=== PATIENT | female | born 1975 | race African-American/Black ===

== ENCOUNTER 2016-08-11 09:53 | Emergency (ER) | payer MEDICAID ==
[~2016-08-11] VITALS: Ht 172.7 cm; Wt 113.9 kg
[2016-08-11 10:26] VITALS: BP 126/87
[2016-08-11] MEDS ORDERED: IBUPROFEN 600 MG TAB PO ONE (10:45)
== END 2016-08-11 11:19 | disposition home or self-care (01) ==
LOC: ER 09:53
DX: S93.402A Sprain of unspecified ligament of left ankle, initial encounter (principal); W01.0XXA Fall on same level from slipping, tripping and stumbling without subsequent striking against object, initial encounter; Y93.89 Activity, other specified; Y99.8 Other external cause status; Y92.091 Bathroom in other non-institutional residence as the place of occurrence of the external cause
CPT/HCPCS: 73610

== ENCOUNTER 2017-01-03 09:18 | Emergency (ER) | payer MEDICAID ==
[~2017-01-03] VITALS: Ht 172.7 cm; Wt 108.9 kg
[2017-01-03 09:31] VITALS: BP 145/89
== END 2017-01-03 10:19 | disposition home or self-care (01) ==
LOC: ER 09:20
DX: S39.012A Strain of muscle, fascia and tendon of lower back, initial encounter (principal); X50.0XXA Overexertion from strenuous movement or load, initial encounter; Y93.89 Activity, other specified; Y99.8 Other external cause status; Y92.89 Other specified places as the place of occurrence of the external cause

== ENCOUNTER 2017-02-12 09:03 | Emergency (ER) | payer MEDICAID ==
[~2017-02-12] VITALS: Ht 172.7 cm; Wt 115.7 kg
[2017-02-12 12:30] VITALS: BP 144/85
== END 2017-02-12 10:43 | disposition home or self-care (01) ==
LOC: ER 09:03
DX: G56.02 Carpal tunnel syndrome, left upper limb (principal)
CPT/HCPCS: 29125

== ENCOUNTER 2017-06-25 09:03 | Emergency (ER) | payer MEDICAID ==
[~2017-06-25] VITALS: Ht 172.7 cm; Wt 114.3 kg
[2017-06-25 09:11] VITALS: BP 135/87
== END 2017-06-25 11:36 | disposition left against medical advice (07) ==
LOC: ER 09:03
DX: R05 Cough (principal); J02.9 Acute pharyngitis, unspecified; Z53.21 Procedure and treatment not carried out due to patient leaving prior to being seen by health care provider

== ENCOUNTER 2017-08-28 13:46 | Emergency (ER) | payer MEDICAID ==
[~2017-08-28] VITALS: Ht 172.7 cm; Wt 108.9 kg
[2017-08-28 13:57] VITALS: BP 144/93
[2017-08-28] MEDS ORDERED: methylPREDNISolone SOD SUCC 125 MG/2 ML VL IM ONE (14:30)
[2017-08-28] MEDS ORDERED: IPRATROPIUM BROM 0.5 MG/2.5ML INH SOL NEB ONE (14:30)
[2017-08-28] MEDS ORDERED: ALBUTEROL SULF 2.5 MG/0.5ML(0.5%) NEB SOLN NEB ONE ×2 (14:30→15:00)
== END 2017-08-28 15:09 | disposition home or self-care (01) ==
LOC: ER 13:46
DX: J45.901 Unspecified asthma with (acute) exacerbation (principal); T63.441A Toxic effect of venom of bees, accidental (unintentional), initial encounter; Y92.89 Other specified places as the place of occurrence of the external cause
CPT/HCPCS: 94640; 96372; 99283; J2930

== ENCOUNTER 2018-03-24 11:05 | Emergency (ER) | payer MEDICAID ==
[~2018-03-24] VITALS: Ht 172.7 cm; Wt 99.8 kg
[2018-03-24 11:09] VITALS: BP 143/92
== END 2018-03-24 12:09 | disposition left against medical advice (07) ==
LOC: ER 11:05
DX: J45.909 Unspecified asthma, uncomplicated (principal); Z53.21 Procedure and treatment not carried out due to patient leaving prior to being seen by health care provider

== ENCOUNTER 2019-01-04 07:16 | Emergency (ER) | payer SELFPAY ==
[~2019-01-04] VITALS: Ht 172.7 cm; Wt 118.4 kg
[2019-01-04 08:07] LABS: Urine Bacteria NONE SEEN /hpf (None Seen); Urine Blood Negative /uL (Negative); Urine Mucus FEW (None Seen); Urine Specific Gravity 1.023 (1.001-1.035); Urine WBC 2 /hpf (0 - 5)
[2019-01-04 08:52] VITALS: BP 152/95
[2019-01-04] MEDS ORDERED: IBUPROFEN 800 MG TAB PO ONE (09:15)
== END 2019-01-04 09:48 | disposition home or self-care (01) ==
LOC: ER 07:16
DX: G89.29 Other chronic pain (principal); M25.551 Pain in right hip; N39.0 Urinary tract infection, site not specified; M54.5 Low back pain; J45.909 Unspecified asthma, uncomplicated; Z98.51 Tubal ligation status
CPT/HCPCS: 72100; 73502; 81001; 81025

== ENCOUNTER → 2020-05-10 07:30 | Emergency (ER) | payer MEDICAID ==
[~2020-05-10] VITALS: Ht 172.7 cm; Wt 111.6 kg
[~2020-05-10 07:30] MED LIST: MORPHINE SULF INJ 2 MG/ML SYRINGE 1ML IV ONE; ONDANSETRON HCL 4 MG/2 ML VIAL ONE
[2020-05-10 08:05] LABS: Basophils # (auto) 0 10 ^3/uL (0-0.2); Basophils % (auto) 0.2 % (0.0-2.0); Eosinophils # (auto) 0.1 10 ^3/uL (0-0.8); Eosinophils % (auto) 1.3 % (0.0-7.0); Hemoglobin 12.4 g/dL (12.2-16.2); Lymphocytes # (auto) 0.7 10 ^3/uL (0.4-5.4); Lymphocytes % (auto) 10.7 % (10.0-50.0); Mean Corpuscular Hgb Conc. 35.4 g/dL (32.0-36.0); Mean Corpuscular Volume 87.7 fL (80.0-100.0); Monocytes # (auto) 0.3 10 ^3/uL (0-1.3); Monocytes % (auto) 4.6 % (0.0-12.0); Neutrophils # (auto) 5.3 10 ^3/uL (1.6-8.6); Neutrophils % (auto) 83.2 % (37.0-80.0); Nucleated Red Blood Cells % 0.1 %; Platelet Count (auto) 261 10^3/uL (140-450); Red Blood Cells 3.99 10^6/uL (4.0-5.20); Red Cell Distribution Width 14.4 % (11.8-14.3); White Blood Cell 6.4 10^3/uL (4.4-10.8)
[2020-05-10 08:26] LABS: BUN/Creatinine Ratio 19.4
[2020-05-10 08:31] LABS: Bilirubin, Total 0.6 mg/dL (0.2-1.0); Total Protein 8.3 g/dL (6.4-8.2)
[2020-05-10 08:32] LABS: Urine Bacteria NONE SEEN /hpf (None Seen); Urine Blood Negative /uL (Negative); Urine Mucus FEW (None Seen); Urine Specific Gravity 1.025 (1.001-1.035); Urine WBC 1 /hpf (0 - 5)
[2020-05-10 08:48] LABS: Amylase 49 U/L (25-115); Lipase 204 U/L (73-393)
[2020-05-10 09:41] VITALS: BP 136/77
== END | disposition home or self-care (01) ==
LOC: ER 07:30
DX: K80.20 Calculus of gallbladder without cholecystitis without obstruction (principal); J45.909 Unspecified asthma, uncomplicated; Z98.51 Tubal ligation status
CPT/HCPCS: 36415; 74176; 80053; 81001; 82150; 83690; 85025; 96374; 96375; 99284; J2270; J2405

== ENCOUNTER 2020-11-14 08:19 | Emergency (ER) | payer MEDICAID ==
[~2020-11-14] VITALS: Ht 172.7 cm; Wt 108.9 kg
[2020-11-14 08:19] VITALS: BP 138/81
[2020-11-14 08:54] LABS: Basophils # (auto) 0 10 ^3/uL (0-0.2); Basophils % (auto) 0.7 % (0.0-2.0); Eosinophils # (auto) 0.2 10 ^3/uL (0-0.8); Eosinophils % (auto) 2.8 % (0.0-7.0); Hematocrit 33.7 % (36.0-46.0); Hemoglobin 11.6 g/dL (12.2-16.2); Lymphocytes # (auto) 2.3 10 ^3/uL (0.4-5.4); Lymphocytes % (auto) 35.7 % (10.0-50.0); Mean Corpuscular Hemoglobin 29.6 pg (28.0-32.0); Mean Corpuscular Hgb Conc. 34.5 g/dL (32.0-36.0); Mean Corpuscular Volume 85.7 fL (80.0-100.0); Monocytes # (auto) 0.5 10 ^3/uL (0-1.3); Monocytes % (auto) 8.1 % (0.0-12.0); Neutrophils # (auto) 3.4 10 ^3/uL (1.6-8.6); Neutrophils % (auto) 52.7 % (37.0-80.0); Nucleated Red Blood Cells % 0.1 %; Platelet Count (auto) 258 10^3/uL (140-450); Red Blood Cells 3.93 10^6/uL (4.0-5.20); Red Cell Distribution Width 15.1 % (11.8-14.3); White Blood Cell 6.4 10^3/uL (4.4-10.8)
[2020-11-14 09:04] LABS: Urine Bacteria FEW /hpf (None Seen); Urine Blood Negative /uL (Negative); Urine Mucus FEW (None Seen); Urine Specific Gravity 1.029 (1.001-1.035); Urine WBC 1 /hpf (0 - 5)
[2020-11-14 09:09] LABS: Albumin 3.3 g/dL (3.4-5.0); BUN/Creatinine Ratio 19.1; Calcium 8.1 mg/dL (8.5-10.1); Potassium 3.7 mmol/L (3.5-5.1)
[2020-11-14 09:11] LABS: Bilirubin, Total 0.2 mg/dL (0.2-1.0); Total Protein 7.4 g/dL (6.4-8.2)
== END 2020-11-14 09:17 | disposition left against medical advice (07) ==
LOC: ER 08:19
DX: R10.32 Left lower quadrant pain (principal); Z53.21 Procedure and treatment not carried out due to patient leaving prior to being seen by health care provider
CPT/HCPCS: 36415; 80053; 81001; 83690; 85025

== ENCOUNTER 2020-11-14 12:55 | Emergency (ER) | payer MEDICAID ==
[~2020-11-14] VITALS: Ht 172.7 cm; Wt 108.9 kg
[2020-11-14 16:11] VITALS: BP 128/84
== END 2020-11-14 16:13 | disposition home or self-care (01) ==
LOC: ER 12:55
DX: R10.84 Generalized abdominal pain (principal); J45.909 Unspecified asthma, uncomplicated
CPT/HCPCS: 71045; 74176

== ENCOUNTER 2022-02-01 13:03 | Emergency (ER) | payer MEDICAID, OTHER ==
[~2022-02-01] VITALS: Ht 172.7 cm; Wt 118.0 kg
[2022-02-01] MEDS ORDERED: ACETAMINOPHEN 500 MG TAB PO ONE (14:15)
[2022-02-01 15:00] VITALS: BP 124/62
[2022-02-01] MEDS ORDERED: IBUP800T27 PO (15:30)
[2022-02-01] MEDS ORDERED: METH750T22 PO (15:30)
== END 2022-02-01 15:35 | disposition home or self-care (01) ==
LOC: ER 13:03
DX: S39.012A Strain of muscle, fascia and tendon of lower back, initial encounter (principal); S00.83XA Contusion of other part of head, initial encounter; V43.52XA Car driver injured in collision with other type car in traffic accident, initial encounter; Y93.89 Activity, other specified; Y92.89 Other specified places as the place of occurrence of the external cause; Y99.8 Other external cause status
CPT/HCPCS: 72100

== ENCOUNTER 2023-08-27 09:05 | Emergency (ER) | payer MEDICAID, OTHER ==
[~2023-08-27] VITALS: Ht 172.7 cm; Wt 133.6 kg
[~2023-08-27 09:05] MED LIST changes: +IBUP-1456 PO; +METH-1182 PO; -MORPHINE SULF INJ 2 MG/ML SYRINGE 1ML IV ONE; -ONDANSETRON HCL 4 MG/2 ML VIAL ONE
[2023-08-27 09:10] VITALS: TEMP 97.4
[2023-08-27 09:17] VITALS: BP 135/76; PULSE 79; RESP 18; O2SAT 98
[2023-08-27] MEDS ORDERED: IBUP-1455 PO (10:47)
[2023-08-27] MEDS ORDERED: METH4PAK PO (10:47)
== END 2023-08-27 10:48 | disposition home or self-care (01) ==
LOC: ER 09:05
DX: M77.12 Lateral epicondylitis, left elbow (principal); J45.909 Unspecified asthma, uncomplicated; Z98.51 Tubal ligation status

== ENCOUNTER 2024-02-20 20:26 | Emergency (ER) | payer MEDICAID ==
[~2024-02-20] VITALS: Ht 172.7 cm; Wt 125.0 kg
[~2024-02-20 20:26] MED LIST changes: +IBUP-1455 PO; +METH4PAK PO
[2024-02-20 20:45] VITALS: BP 146/81; PULSE 70; RESP 18; TEMP 98.6; O2SAT 98
[2024-02-20] MEDS ORDERED: AUG875T PO (22:38)
== END 2024-02-20 23:05 | disposition home or self-care (01) ==
LOC: ER 20:26
DX: S20.369A Insect bite (nonvenomous) of unspecified front wall of thorax, initial encounter (principal); J45.909 Unspecified asthma, uncomplicated; Z98.51 Tubal ligation status; W57.XXXA Bitten or stung by nonvenomous insect and other nonvenomous arthropods, initial encounter; Y93.89 Activity, other specified; Y92.89 Other specified places as the place of occurrence of the external cause; Y99.8 Other external cause status

== ENCOUNTER 2024-04-23 11:52 | Emergency (ER) | payer MEDICAID ==
[~2024-04-23] VITALS: Ht 172.7 cm; Wt 125.5 kg
[~2024-04-23 11:52] MED LIST changes: +AUG875T PO
[2024-04-23 12:16] VITALS: BP 141/88; PULSE 69; RESP 16; TEMP 99; O2SAT 97
[2024-04-23] MEDS: IBUPROFEN 800 MG TAB PO ONE (12:51)
[2024-04-23] MEDS ORDERED: METH-1182 PO (13:44)
== END 2024-04-23 13:56 | disposition home or self-care (01) ==
LOC: ER 11:52
DX: S39.012A Strain of muscle, fascia and tendon of lower back, initial encounter (principal); M51.369 Other intervertebral disc degeneration, lumbar region without mention of lumbar back pain or lower extremity pain; J45.909 Unspecified asthma, uncomplicated; Z79.1 Long term (current) use of non-steroidal anti-inflammatories (NSAID); Z98.51 Tubal ligation status; V43.52XA Car driver injured in collision with other type car in traffic accident, initial encounter; Y93.89 Activity, other specified; Y92.89 Other specified places as the place of occurrence of the external cause; Y99.8 Other external cause status
CPT/HCPCS: 72100